=== PATIENT | female | born 1980 | race Caucasian/White ===

== ENCOUNTER 2021-01-28 16:30 | Outpatient (CLI) | payer OTHER | END 2021-01-28 16:40 | disposition home or self-care (01) | LOC: NST 16:30 | PROVIDERS: ATTEND Obstetrics & Gynecology Maternal & Fetal Medicine | DX: O32.1XX0 Maternal care for breech presentation, not applicable or unspecified (principal) ==

== ENCOUNTER 2021-03-11 11:45 | Inpatient (IN) | payer OTHER ==
[~2021-03-11] VITALS: Ht 165.1 cm; Wt 3.2 kg
[2021-03-11] MEDS ORDERED: PRENATAL + DHA1 EAC1 PO (14:02)
[2021-03-18] MEDS ORDERED: PANTOPRAZOLE SO40 MG (15:57)
[2021-03-18] MEDS ORDERED: FAMOTIDINE40 MG (15:57)
[2021-03-21] MEDS ORDERED: KETO10TA2 PO (09:59)
[2021-03-21] MEDS ORDERED: OXYC1TAB9 PO (10:00)
== END 2021-03-21 11:50 | disposition home or self-care (01) | DRG 788 ==
LOC: OB/GYN 03-18 07:00 → O/R 03-18 14:35 → SURG-SUITE 03-18 14:35 → EDBEDREQ 03-18 14:39 → SURG-SUITE 03-18 17:40
PROVIDERS: ADMIT Obstetrics & Gynecology; ATTEND Obstetrics & Gynecology
PROC: 4A1HXFZ Monitoring of Products of Conception, Cardiac Rhythm, External Approach (ICD-10-PCS; 2021-03-18)
PROC: 10D00Z1 Extraction of Products of Conception, Low, Open Approach (ICD-10-PCS; principal; 2021-03-18 07:00)
DX: O65.5 Obstructed labor due to abnormality of maternal pelvic organs (principal); O34.211 Maternal care for low transverse scar from previous cesarean delivery; Z3A.39 39 weeks gestation of pregnancy; Z37.0 Single live birth

== ENCOUNTER 2021-03-26 08:00 | Inpatient (IN) | payer OTHER ==
[~2021-03-26] VITALS: Ht 167.6 cm; Wt 90.7 kg
[~2021-03-26 08:00] MED LIST: FAMOTIDINE40 MG; KETO10TA2 PO; OXYC1TAB9 PO; PANTOPRAZOLE SO40 MG; PRENATAL + DHA1 EAC1 PO
== END 2021-03-30 12:07 | disposition home or self-care (01) | DRG 776 ==
LOC: ER 08:00 → OB/GYN 09:43
PROVIDERS: ADMIT Obstetrics & Gynecology; ATTEND Obstetrics & Gynecology
DX: O86.03 Infection of obstetric surgical wound, organ and space site (principal); B96.20 Unspecified Escherichia coli [E. coli] as the cause of diseases classified elsewhere; B95.2 Enterococcus as the cause of diseases classified elsewhere; B96.1 Klebsiella pneumoniae [K. pneumoniae] as the cause of diseases classified elsewhere; Z20.822 Contact with and (suspected) exposure to COVID-19; Z98.891 History of uterine scar from previous surgery

== ENCOUNTER 2021-04-01 16:10 | Outpatient (CLI) | payer OTHER | END 2021-04-01 16:12 | disposition home or self-care (01) | LOC: LAB 16:10 | PROVIDERS: ATTEND Obstetrics & Gynecology | DX: N07.1 Hereditary nephropathy, not elsewhere classified with focal and segmental glomerular lesions (principal); Z03.818 Encounter for observation for suspected exposure to other biological agents ruled out ==

== ENCOUNTER 2021-05-03 08:24 | Outpatient (CLI) | payer OTHER | END 2021-05-03 08:30 | disposition home or self-care (01) | LOC: SONOGRAMA 08:24 | PROVIDERS: ATTEND Internal Medicine | DX: L02.211 Cutaneous abscess of abdominal wall (principal); R10.84 Generalized abdominal pain; L08.89 Other specified local infections of the skin and subcutaneous tissue ==